=== PATIENT | male | born 1925 | race African-American/Black ===

== ENCOUNTER 2017-01-21 09:58 | Emergency (ER) | payer BC ==
[~2017-01-21] VITALS: Ht 180.3 cm; Wt 86.0 kg
[~2017-01-21 09:58] MED LIST: ASPI-1159 PO; TAMS-11 PO
[2017-01-21 10:39] VITALS: BP 155/68
== END 2017-01-21 10:49 | disposition home or self-care (01) ==
LOC: ER 10:05
DX: R33.9 Retention of urine, unspecified (principal); R31.9 Hematuria, unspecified
CPT/HCPCS: 99284